=== PATIENT | female | born 1975 | race Caucasian/White ===

== ENCOUNTER 2017-01-01 14:23 | Emergency (ER) | payer OTHER | END 2017-01-01 16:50 | disposition home or self-care (01) | LOC: ER 14:23 | DX: M54.16 Radiculopathy, lumbar region (principal); I10 Essential (primary) hypertension; E03.9 Hypothyroidism, unspecified; K21.9 Gastro-esophageal reflux disease without esophagitis; F32.9 Major depressive disorder, single episode, unspecified; Z79.899 Other long term (current) drug therapy; Z98.51 Tubal ligation status | CPT/HCPCS: 96372; J1885 ==